=== PATIENT | female | born 1955 | race Hispanic/Latino ===

== ENCOUNTER → 2018-07-26 | Outpatient (CLI) | payer OTHER | END | disposition home or self-care (01) | LOC: RAH 14:21 | PROVIDERS: ATTEND Internal Medicine Nephrology | DX: Z13.6 Encounter for screening for cardiovascular disorders (principal) | CPT/HCPCS: 75571 ==

== ENCOUNTER → 2018-09-07 | Outpatient (CLI) | payer OTHER | END | disposition home or self-care (01) | LOC: SHCH 15:42 | PROVIDERS: ATTEND Internal Medicine Cardiovascular Disease | DX: I11.9 Hypertensive heart disease without heart failure (principal); E66.9 Obesity, unspecified | CPT/HCPCS: 93306 ==

== ENCOUNTER → 2018-09-10 | Outpatient (CLI) | payer OTHER ==
[~2018-09-10] VITALS: Ht 152.4 cm; Wt 112.9 kg
[~2018-09-10] MED LIST: REGADENOSON 0.4 MG/5 ML PF SYG IVP SCH
== END | disposition home or self-care (01) ==
LOC: SHCH 07:37
PROVIDERS: ATTEND Internal Medicine Cardiovascular Disease
DX: R93.1 Abnormal findings on diagnostic imaging of heart and coronary circulation (principal); R07.89 Other chest pain; I10 Essential (primary) hypertension
CPT/HCPCS: 78452; 93017; 96374; A9500 ×2; J2785

== ENCOUNTER → 2018-09-17 | Outpatient (CLI) | payer OTHER ==
[2018-09-17 09:05] LABS: CREATININE 0.7 mg/dL (0.5-1.5)
== END | disposition home or self-care (01) ==
LOC: LAB 08:30
PROVIDERS: ATTEND Internal Medicine Gastroenterology
DX: R93.3 Abnormal findings on diagnostic imaging of other parts of digestive tract (principal)
CPT/HCPCS: 36415; 82565; 84520

== ENCOUNTER → 2018-09-22 | Outpatient (CLI) | payer OTHER ==
[~2018-09-22] MED LIST changes: +GADODIAMIDE 10 MMOL/20 ML VIAL IV ONE; -REGADENOSON 0.4 MG/5 ML PF SYG IVP SCH
== END | disposition home or self-care (01) ==
LOC: RAH 06:59
PROVIDERS: ATTEND Internal Medicine Gastroenterology
DX: K76.0 Fatty (change of) liver, not elsewhere classified (principal)
CPT/HCPCS: 74183; A9579

== ENCOUNTER 2019-08-31 06:59 | Day surgery (SDC) | payer OTHER ==
[2019-08-29 11:15] VITALS: BP 152/77
[2019-08-29 11:16] LABS: CREATININE 0.7 mg/dL (0.5-1.5); POTASSIUM 3.1 mmol/L (3.5-5.1)
[2019-08-29 11:22] LABS: BASOPHILS % (AUTO) 0.5 % (0.0-5.0); EOSINOPHILS % (AUTO) 0.9 % (0.0-8.0); HEMATOCRIT 42.4 % (36-48); LYMPHOCYTES % (AUTO) 35.3 % (21.0-51.0); MEAN CORPUSCULAR HEMOGLOBIN 29.4 pg (27.0-33.0); MEAN CORPUSCULAR HGB CONC 32.8 g/dL (32.0-36.0); MEAN CORPUSCULAR VOLUME 89.6 fL (79-99); NEUTROPHILS % (AUTO) 55.9 % (40.0-77.0); PLATELET COUNT (AUTO) 250 K/uL (130-400); RED BLOOD CELL COUNT(AUTO) 4.73 MIL/uL (4.00-5.50); RED CELL DISTRIBUTION WIDTH 12.9 % (11.0-15.5); WHITE BLOOD COUNT (AUTO) 7.4 K/uL (4.8-10.8)
--- NOTE | 2019-08-30 13:55 | NUR ---
Called Doctor Alyssa and reported lab of potassium of 3.1, new orders to recheck in am. Okay to proceed.
[2019-08-31] VITALS (13 sets, daily range): BP systolic 123–139; BP diastolic 69–75
[~2019-08-31] VITALS: Ht 152.4 cm; Wt 112.9 kg
[~2019-08-31 06:59] MED LIST changes: +AMLO2.5T4 PO; +ASPI-555 PO; +DICY20TA11 PO; -GADODIAMIDE 10 MMOL/20 ML VIAL IV ONE; +HYDR25TA PO; +LATA7.5D OU; +MECL-160 PO; +MILK1CAP3 PO; +OMEG-112 PO; +ROSU20TA31 PO; +vitamin d2
[2019-08-31] MEDS ORDERED: LACTATED RINGERS 1000ML 1,000 ML IV ONE (07:22)
[2019-08-31] MEDS ORDERED: MIDAZOLAM HCL 1 MG/ML 2ML VIAL ONE (08:10)
[2019-08-31] MEDS ORDERED: PROPOFOL 10 MG/ML 20ML VIAL IV ONE (08:10)
[2019-08-31] MEDS ORDERED: FENTANYL CITRATE PF 50 MCG/1 ML 2ML VIAL ONE (08:10)
[2019-08-31] MEDS ORDERED: LIDOCAINE PF 2% 5ML ABBOJECT ONE (08:10)
[2019-08-31] MEDS ORDERED: POTASSIUM CHLORIDE 20MEQ/100ML 100 ML IV SCH (08:30)
[2019-08-31] MEDS ORDERED: CEFAZOLIN SODIUM 1 GM VIAL ONE (09:17)
[2019-08-31] MEDS ORDERED: ONDANSETRON HCL 4 MG/2 ML VIAL ONE (09:27)
[2019-08-31] MEDS ORDERED: KETOROLAC TROMETHAMINE 30MG/ML ONE (10:12)
[2019-08-31] MEDS ORDERED: ACET1TAB12 PO (10:38)
[2019-08-31] MEDS ORDERED: CEPH500B PO (10:38)
[2019-08-31] MEDS ORDERED: MELO-108 PO (10:38)
[2019-08-31] MEDS ORDERED: MEPERIDINE-PF 25 MG/ML SYG ONE (10:45)
[2019-08-31] MEDS ORDERED: POTASSIUM CHLORIDE 20 MEQ ERTAB PO SCH (11:15)
== END 2019-08-31 12:05 | disposition home or self-care (01) ==
LOC: DAH 06:59
PROVIDERS: ATTEND Orthopaedic Surgery
DX: M23.322 Other meniscus derangements, posterior horn of medial meniscus, left knee (principal); M25.452 Effusion, left hip; M24.10 Other articular cartilage disorders, unspecified site; M25.562 Pain in left knee; G89.29 Other chronic pain; M94.262 Chondromalacia, left knee; I10 Essential (primary) hypertension; E78.5 Hyperlipidemia, unspecified; E66.01 Morbid (severe) obesity due to excess calories; M19.90 Unspecified osteoarthritis, unspecified site; Z68.42 Body mass index [BMI] 45.0-49.9, adult; Z85.828 Personal history of other malignant neoplasm of skin; Z98.890 Other specified postprocedural states; Z79.899 Other long term (current) drug therapy; Z79.82 Long term (current) use of aspirin; Z90.49 Acquired absence of other specified parts of digestive tract; Z82.49 Family history of ischemic heart disease and other diseases of the circulatory system; Z82.3 Family history of stroke
CPT/HCPCS: 29881; 36415 ×2; 80048; 84132; 85025; 96365; A4213; A4215; A4221; A4222; A4223 ×2; A4606; A4649 ×2; A4663; A4930; A5120; A6223; J0690; J1885; J2001; J2175; J2250; J2405; J2704; J3010; J3480; J7120

== ENCOUNTER 2020-10-18 18:55 | Emergency (ER) | payer OTHER ==
[~2020-10-18 18:55] MED LIST changes: +ACET1TAB12 PO; -ASPI-555 PO; +ASPI-556 PO; +CEPH500B PO; +MELO-108 PO
[2020-10-18 19:33] LABS: BASOPHILS % (AUTO) 0.4 % (0.0-5.0); EOSINOPHILS % (AUTO) 1.4 % (0.0-8.0); HEMATOCRIT 40.2 % (36-48); LYMPHOCYTES % (AUTO) 31.5 % (21.0-51.0); MEAN CORPUSCULAR HEMOGLOBIN 30.2 pg (27.0-33.0); MEAN CORPUSCULAR HGB CONC 32.6 g/dL (32.0-36.0); MEAN CORPUSCULAR VOLUME 92.6 fL (79-99); NEUTROPHILS % (AUTO) 58.1 % (40.0-77.0); PLATELET COUNT (AUTO) 216 K/uL (130-400); RED BLOOD CELL COUNT(AUTO) 4.34 MIL/uL (4.00-5.50); RED CELL DISTRIBUTION WIDTH 13.9 % (11.0-15.5); WHITE BLOOD COUNT (AUTO) 9.6 K/uL (4.8-10.8)
[2020-10-18 19:50] LABS: INR 0.97 (0.85-1.15); PARTIAL THROMBOPLASTIN TIME 24.8 SEC (26.3-35.5); PROTHROMBIN TIME 10.1 SEC (9.6-11.6)
[2020-10-18 19:59] LABS: CREATININE 0.9 mg/dL (0.5-1.5); POTASSIUM 4.1 mmol/L (3.5-5.1)
[2020-10-18 20:03] LABS: ALBUMIN 3.8 g/dL (3.5-5.0); BILIRUBIN,TOTAL 0.3 mg/dL (0.2-1.0); TOTAL PROTEIN, SERUM 7.4 g/dL (6.0-8.3)
== END 2020-10-18 22:28 | disposition home or self-care (01) ==
LOC: EDH 18:55
DX: R07.89 Other chest pain (principal); Z20.822 Contact with and (suspected) exposure to COVID-19
CPT/HCPCS: 36415; 71045; 80053; 82550; 83880; 84484 ×2; 85025; 85610; 85730; 87426; 93005; 99285; U0003

== ENCOUNTER → 2020-10-26 | Outpatient (CLI) | payer OTHER ==
[~2020-10-26] VITALS: Ht 152.4 cm; Wt 107.0 kg
[~2020-10-26] MED LIST changes: +REGADENOSON 0.4 MG/5 ML PF SYG IVP SCH
== END | disposition home or self-care (01) ==
LOC: SHCH 08:47
PROVIDERS: ATTEND Internal Medicine Cardiovascular Disease
DX: I20.9 Angina pectoris, unspecified (principal)
CPT/HCPCS: 78452; 93017; 96374; A9500 ×2

== ENCOUNTER → 2021-11-04 | Outpatient (CLI) | payer OTHER ==
[~2021-11-04] MED LIST changes: -DICY20TA11 PO; +DICY20TA3 PO; -REGADENOSON 0.4 MG/5 ML PF SYG IVP SCH
[2021-11-04 13:57] LABS: CREATININE 0.8 mg/dL (0.5-1.5)
== END | disposition home or self-care (01) ==
LOC: LAB 11:46
PROVIDERS: ATTEND Internal Medicine
DX: R92.8 Other abnormal and inconclusive findings on diagnostic imaging of breast (principal)
CPT/HCPCS: 36415; 82565; 84520

== ENCOUNTER → 2021-11-07 | Outpatient (CLI) | payer OTHER ==
[~2021-11-07] MED LIST changes: +GADOTERATE MEGLUMINE 10 MMOL/20 ML VIAL IV ONE
== END | disposition home or self-care (01) ==
LOC: RAH 07:43
PROVIDERS: ATTEND Internal Medicine
DX: N60.01 Solitary cyst of right breast (principal); N60.02 Solitary cyst of left breast
CPT/HCPCS: 77049; A9575

== ENCOUNTER → 2022-08-01 | Outpatient (CLI) | payer OTHER ==
[~2022-08-01] MED LIST changes: -GADOTERATE MEGLUMINE 10 MMOL/20 ML VIAL IV ONE
== END | disposition home or self-care (01) ==
LOC: RAH 08:04
PROVIDERS: ATTEND Internal Medicine Gastroenterology
DX: K76.0 Fatty (change of) liver, not elsewhere classified (principal); K76.89 Other specified diseases of liver; N28.1 Cyst of kidney, acquired; R93.2 Abnormal findings on diagnostic imaging of liver and biliary tract; Z90.49 Acquired absence of other specified parts of digestive tract
CPT/HCPCS: 76700

== ENCOUNTER 2023-03-30 05:02 | Observation (INO) | payer OTHER, MEDICARE ==
[2023-03-27 12:58] LABS: BASOPHILS # (AUTO) 0.02 K/uL (0.00-0.20); BASOPHILS % (AUTO) 0.3 % (0.0-5.0); EOSINOPHILS # (AUTO) 0.05 K/uL (0.00-0.70); EOSINOPHILS % (AUTO) 0.8 % (0.0-8.0); HEMATOCRIT 39.7 % (36-48); IMMATURE GRANULOCYTE ABSOLUTE 0.02 K/uL (0-1); LYMPHOCYTES % (AUTO) 30.8 % (21.0-51.0); MEAN CORPUSCULAR HEMOGLOBIN 29.6 pg (27.0-33.0); MEAN CORPUSCULAR HGB CONC 31.7 g/dL (32.0-36.0); MEAN CORPUSCULAR VOLUME 93.2 fL (79-99); MONOCYTES # (AUTO) 0.4 K/uL (0.1-1.0); MONOCYTES % (AUTO) 5.8 % (3.0-13.0); NEUTROPHILS # (AUTO) 4.1 K/uL (1.8-7.7); PLATELET COUNT (AUTO) 259 K/uL (130-400); RED BLOOD CELL COUNT(AUTO) 4.26 MIL/uL (4.00-5.50); RED CELL DISTRIBUTION WIDTH 12.8 % (11.0-15.5); WHITE BLOOD COUNT (AUTO) 6.6 K/uL (4.8-10.8)
[2023-03-27 13:47] LABS: CREATININE 0.6 mg/dL (0.5-1.5); POTASSIUM 3.8 mmol/L (3.5-5.1)
[2023-03-27 14:34] VITALS: BP 177/81; PULSE 66; RESP 18
[~2023-03-30] VITALS: Ht 152.4 cm; Wt 88.2 kg
[2023-03-30] VITALS (26 sets, daily range): BP systolic 108–150; BP diastolic 41–75; PULSE 52–73; RESP 14–24; O2SAT 98–99
[~2023-03-30 05:02] MED LIST changes: -ACET1TAB12 PO; -AMLO2.5T4 PO; +CELE-146 PO; -CEPH500B PO; -DICY20TA3 PO; +ERGO500093 PO; +FURO20TA4 PO; -HYDR25TA PO; +LINA145C PO; +LOSA50TA64 PO; -MECL-160 PO; +MECL-302 PO; -OMEG-112 PO; +OMEP40CA21 PO; +PITA2TAB2 PO; -ROSU20TA31 PO; +TIMO1DRO9 OP; +TRAM50TA4 PO; +krill oil PO; -vitamin d2
[2023-03-30] MEDS ORDERED: CEFAZOLIN SODIUM 2 GM VIAL ONE (05:27)
[2023-03-30] MEDS ORDERED: LACTATED RINGERS 1000ML 1,000 ML IV ONE (05:27)
[2023-03-30] MEDS ORDERED: FENTANYL CITRATE PF 50 MCG/1 ML 5ML AMP IV ONE ×3 (05:48→07:27)
[2023-03-30 05:57] LABS: INR < 0.93 (0.85-1.15); PROTHROMBIN TIME 10.4 SEC (9.6-11.6)
[2023-03-30] MEDS ORDERED: CEFAZOLIN SODIUM 1 GM VIAL ONE ×2 (07:04→09:22)
[2023-03-30] MEDS ORDERED: TRANEXAMIC ACID 1000MG/10ML ONE ×2 (07:04→09:21)
[2023-03-30] MEDS ORDERED: GENTAMICIN SULFATE 80 MG/2 ML VIAL ONE ×2 (07:05→09:22)
[2023-03-30] MEDS ORDERED: DEXAMETHASONE SOD PHOSPHATE 10MG/ML 1ML VIAL ONE (07:23)
[2023-03-30] MEDS ORDERED: NEOSTIGMINE 5MG/5ML SYR IV ONE (07:23)
[2023-03-30] MEDS ORDERED: GLYCOPYRROLATE 1 MG/5 ML SYRINGE ONE (07:23)
[2023-03-30] MEDS ORDERED: SUCCINYLCHOLINE CHLORIDE 20 MG/ML 10 ML VIAL ONE (07:23)
[2023-03-30] MEDS ORDERED: LIDOCAINE PF 100MG/5ML (2%) SYRINGE 5ML ONE (07:23)
[2023-03-30] MEDS ORDERED: ROCURONIUM 10MG/1ML SYR 10 MG/ML ML ONE (07:24)
[2023-03-30] MEDS ORDERED: ONDANSETRON 4MG INJ ONE (07:24)
[2023-03-30] MEDS ORDERED: PROPOFOL 1000 MG/100 ML 100 ML IV ONE (07:26)
[2023-03-30] MEDS ORDERED: LIDOCAINE HCL 400MG/20ML VIAL ONE (07:26)
[2023-03-30] MEDS ORDERED: MIDAZOLAM HCL 1 MG/ML 5ML VIAL ONE (07:27)
[2023-03-30] MEDS ORDERED: DEXMEDETOMIDINE HCL 200 MCG/2 ML VIAL IV ONE (07:27)
[2023-03-30] MEDS ORDERED: KETAMINE 50MG/ML SYRINGE 50 MG/ML DISP.SYRIN ONE (07:28)
[2023-03-30] MEDS ORDERED: PHENYLEPHRINE HCL 10 MG/ML 1ML VIAL IV ONE (07:43)
[2023-03-30] MEDS ORDERED: TRANEXAMIC ACID 1000MG/10ML IV ONE (08:13)
[2023-03-30] MEDS ORDERED: EPHEDRINE SULFATE 50 MG/ML AMPULE ONE (08:17)
[2023-03-30] MEDS ORDERED: 0.9%NACL 100ML 48.45 ML, ROPIVACAINE 0.5% 5MG/ML 30ML 246.25 MG, KETOROLAC TROMETHAMINE... IV PRN ×5 (09:00)
[2023-03-30] MEDS ORDERED: CEFAZOLIN SODIUM 2 GM VIAL IJ ONE (09:05)
[2023-03-30] MEDS ORDERED: MEPERIDINE-PF 25 MG/ML SYG ONE (09:15)
[2023-03-30] MEDS ORDERED: ZINC OXIDE OINT 60GM TUBE TP PRN (13:00)
[2023-03-30] MEDS ORDERED: ACETAMINOPHEN 325 MG TAB PO PRN ×2 (13:00)
[2023-03-30] MEDS ORDERED: BENZOCAINE/MENTH/CETYLPYRD CL 1 EACH LOZENGE MM PRN (13:00)
[2023-03-30] MEDS ORDERED: DIPHENHYDRAMINE HCL 25 MG CAPSULE PO PRN (13:00)
[2023-03-30] MEDS ORDERED: CEFAZOLIN SODIUM 2 GM VIAL IVPB SCH (13:00)
[2023-03-30] MEDS ORDERED: DIPHENOXYLATE HCL/ATROPINE 2.5/0.025 MG TAB PO PRN (13:00)
[2023-03-30] MEDS ORDERED: LACTULOSE 20 GM/30 ML UDCUP PO PRN (13:00)
[2023-03-30] MEDS ORDERED: ONDANSETRON 4MG INJ IVP PRN (13:00)
[2023-03-30] MEDS ORDERED: DiphenhydrAMINE HCL 50 MG/ML VIAL IM PRN (13:00)
[2023-03-30] MEDS ORDERED: DIPHENHYDRAMINE HCL 25 MG CAPSULE PO SCH (13:00)
[2023-03-30] MEDS ORDERED: MAG/ALUM/SIMETH 30 ML UDCUP PO PRN (13:00)
[2023-03-30] MEDS ORDERED: ACETAMINOPHEN 325 MG TAB PO SCH (13:00)
[2023-03-30] MEDS ORDERED: HYDROMORPHONE PCA 10 MG/50 ML 50 ML IV PRN (13:00)
[2023-03-30] MEDS ORDERED: COMPOUND IV REFRIGERATED 1 EACH IVSOLN MISC PRN (13:30)
[2023-03-30] MEDS ORDERED: MECLIZINE HCL 25 MG TABLET PO PRN (15:00)
[2023-03-30] MEDS: 0.9%NACL 1000ML 1,000 ML IV SCH ×2 (15:46→22:53)
[2023-03-30] MEDS: CEFAZOLIN SODIUM 3 GM in DEXTROSE 5%-WATER 100 ML IVPB SCH (16:22)
[2023-03-30] MEDS ORDERED: Linaclotide (Linzess) 145 MCG PO SCH (21:00)
[2023-03-31 00:09] VITALS: BP 115/56; PULSE 74; RESP 20
[2023-03-31] MEDS: CEFAZOLIN SODIUM 3 GM in DEXTROSE 5%-WATER 100 ML IVPB SCH (00:11)
[2023-03-31 03:28] LABS: MEAN CORPUSCULAR HEMOGLOBIN 29.9 pg (27.0-33.0); MEAN CORPUSCULAR HGB CONC 31.6 g/dL (32.0-36.0); MEAN CORPUSCULAR VOLUME 94.7 fL (79-99); RED BLOOD CELL COUNT(AUTO) 3.38 MIL/uL (4.00-5.50); WHITE BLOOD COUNT (AUTO) 8.5 K/uL (4.8-10.8)
[2023-03-31 03:34] LABS: CREATININE 0.7 mg/dL (0.5-1.5); POTASSIUM 3.8 mmol/L (3.5-5.1)
[2023-03-31 03:47] VITALS: BP 115/56; PULSE 74; RESP 20
[2023-03-31] MEDS: TRAMADOL HCL 50 MG TABLET PO PRN ×2 (04:04→10:18)
[2023-03-31 08:00] VITALS: BP 130/58; PULSE 75; RESP 16
[2023-03-31] MEDS: 0.9%NACL 1000ML 1,000 ML IV SCH (08:44)
[2023-03-31 08:46] VITALS: O2SAT 94
[2023-03-31] MEDS ORDERED: LOSARTAN 50 MG TABLET PO SCH (09:00)
[2023-03-31] MEDS ORDERED: RIVAROXABAN 10 MG TABLET PO SCH (09:00)
[2023-03-31] MEDS ORDERED: NON-FORMULARY MEDICATION 1 EACH (Omeprazole 40 MG) PO SCH (09:00)
[2023-03-31] MEDS ORDERED: FUROSEMIDE 20 MG TABLET PO SCH (09:00)
[2023-03-31 12:00] VITALS: BP 131/64; PULSE 61; RESP 16
== END 2023-03-31 14:45 | disposition home health service (06) ==
LOC: DAH 05:02 → 4BH 05:03
PROVIDERS: ADMIT Orthopaedic Surgery; ATTEND Orthopaedic Surgery
DX: M17.12 Unilateral primary osteoarthritis, left knee (principal); E78.5 Hyperlipidemia, unspecified; I10 Essential (primary) hypertension; E66.9 Obesity, unspecified; K21.9 Gastro-esophageal reflux disease without esophagitis; I25.10 Atherosclerotic heart disease of native coronary artery without angina pectoris; Z68.38 Body mass index [BMI] 38.0-38.9, adult; Z90.710 Acquired absence of both cervix and uterus; Z96.653 Presence of artificial knee joint, bilateral; Z91.040 Latex allergy status; Z90.89 Acquired absence of other organs
CPT/HCPCS: 80048 ×2; 85025; 36415 ×3; 71045; 93005; 87641; 27447; 96365; 96366 ×3; 96368; 85610; 85730; 97161; 97116 ×3; 85027; 97530 ×6; A6260; G0378 ×23; A4663; J7120 ×2; A4215 ×2; A4649 ×4; J3010 ×3; J0690 ×5; J3490 ×8; J1170; J1100; J2710; J0330; J0171; J2001; J2250; J1580 ×2; J2704; J7060; J2405; J1885; J2175; J2795; J2371; J0735; A6223; C1763 ×2; C1776; A5120; A4223; A4222; A4221; A6450; J7030 ×2; A4600; A4510 ×2; 96367

== ENCOUNTER 2024-06-28 06:54 | Day surgery (SDC) | payer MEDICARE ==
[2024-06-28] VITALS (10 sets, daily range): BP systolic 95–128; BP diastolic 46–70; PULSE 50–59; RESP 14–18; TEMP 97.5–97.8
[~2024-06-28] VITALS: Ht 152.4 cm; Wt 84.8 kg
[~2024-06-28 06:54] MED LIST changes: -ASPI-556 PO; -ERGO500093 PO; -FURO20TA4 PO; -LOSA50TA64 PO; -MELO-108 PO; +MILK175C5 PO; -MILK1CAP3 PO; -TRAM50TA4 PO; +UBID100C10 PO
[2024-06-28] MEDS: 0.9%NACL 1000ML 1,000 ML IV ONE (07:41)
[2024-06-28] MEDS ORDERED: proPOFol 10 MG/ML 20ML VIAL IV ONE (09:46)
[2024-06-28] MEDS ORDERED: LIDOCAINE HCL 1% 20 ML VIAL ONE (09:46)
--- NOTE | 2024-06-28 11:05 | NUR ---
FULL AND COMPLETE DISCHARGE INSTRUCTIONS GIVEN BOTH VERBALLY AND IN WRITING TO PATIENT AND FAMILY. ALL QUESTIONS ANSWERED. PIV REMOVED WITH CATHETER TIP INTACT. DENIES CURRENT PAIN OR NAUSEA. VOICED UNDERSTANDING TO EGD INSTRUCTIONS AND FOLLOW UP. W/C TO POV WITH FAMILY TO HOME.
== END 2024-06-28 11:05 | disposition home or self-care (01) ==
LOC: DAH 06:54 → ENDO 06:54
PROVIDERS: ATTEND Internal Medicine Gastroenterology
DX: K31.A11 Gastric intestinal metaplasia without dysplasia, involving the antrum (principal); K59.04 Chronic idiopathic constipation; K29.70 Gastritis, unspecified, without bleeding; K21.00 Gastro-esophageal reflux disease with esophagitis, without bleeding; K44.9 Diaphragmatic hernia without obstruction or gangrene; R12 Heartburn; R93.2 Abnormal findings on diagnostic imaging of liver and biliary tract; K76.0 Fatty (change of) liver, not elsewhere classified; D12.6 Benign neoplasm of colon, unspecified; E78.5 Hyperlipidemia, unspecified; I10 Essential (primary) hypertension; K57.30 Diverticulosis of large intestine without perforation or abscess without bleeding; E66.9 Obesity, unspecified; Z80.0 Family history of malignant neoplasm of digestive organs; Z79.82 Long term (current) use of aspirin; Z79.899 Other long term (current) drug therapy; Z87.898 Personal history of other specified conditions; Z90.710 Acquired absence of both cervix and uterus; Z96.659 Presence of unspecified artificial knee joint; Z90.49 Acquired absence of other specified parts of digestive tract; Z68.38 Body mass index [BMI] 38.0-38.9, adult
CPT/HCPCS: 43239; J7030 ×2; J2704; A4620; A4215; A4223; A7002; A4222; A4221; A4663; A4606; J3490

== ENCOUNTER 2024-10-30 15:01 | Emergency (ER) | payer MEDICARE ==
[~2024-10-30] VITALS: Ht 152.4 cm; Wt 87.1 kg
--- NOTE | 2024-10-30 16:50 | HMCIMG ---
US SOFT TISSUE LOWER EXTREMITY REASON: r/o abscess right lower calf. COMPARISON: None TECHNIQUE: Right calf ultrasound study was performed. FINDINGS: Over the region of interest in the right calf, there appears to be subcutaneous abscess and bacteremia measuring 1.2 x 0.4 x 1.4 cm. IMPRESSION: Over the region of interest in the right calf, there appears to be subcutaneous abscess and bacteremia measuring 1.2 x 0.4 x 1.4 cm.
--- NOTE | 2024-10-30 16:53 | ERN ---
ED Note History of Present Illness Stated Complaint: RT LEG NON HEALING WOUND Chief Complaint: Wound Check Time Seen by MD: 15:32 Time Seen by Midlevel: 15:32 Dictation: 69-year-old female nondiabetic coming in with complaints of a horse fly bite to the right calf five days ago. Patient is currently taking doxycycline scribe by her PCP, noticed some bloody drainage. Decided to come and be re-evaluated. Allergies: Coded Allergies: No Known Drug Allergies (Verified Allergy, Unknown, 08/29/19) adhesive tape (Unverified Allergy, Unknown, 08/29/19) latex (Unverified Allergy, Unknown, 03/27/23) Home Meds Reported Medications Ubidecarenone (Coq-10) 100 Mg Capsule, 100 MG PO DAILY, CAP 06/27/24 Milk Thistle Seed Extract (Milk Thistle) 175 Mg Capsule, 175 MG PO DAILY, CAP 06/27/24 Timolol Maleate/Pf (Timolol Maleate 0.5% Eye Drop) 0.5 % Droperette, 1 EACH OP AM, DROP 03/27/23 [krill oil] No Conflict Check, 2 TAB PO AM 03/27/23 Omeprazole (Omeprazole) 40 Mg Capsule.dr, 40 MG PO AM, CAP 03/27/23 Linaclotide (Linzess) 145 Mcg Capsule, 145 MCG PO HS, CAP 03/27/23 Celecoxib (Celecoxib) 100 Mg Capsule, 200 MG PO HS, CAP 03/27/23 Pitavastatin Calcium (Livalo) 2 Mg Tablet, 2 MG PO HS, TAB 03/27/23 Latanoprost/Pf (Latanoprost 0.005% Eye Drop) 7.5 Ml Drops, 1 DROP OU HS, DROP 08/29/19 Meclizine HCl (Meclizine HCl) 25 Mg Tablet, 25 MG PO BID PRN for DIZZINESS, TAB 08/29/19 Past Medical History Past Medical History: Anxiety, High Cholesterol Surgical History: Other Surgical History Other: BILATERAL KNEE REPLACEMENT Review of System Dictation Constitutional: Negative for fever,chills, and weight loss Eyes: Negative for injury, pain,redness, and discharge ENT: Negative for injury,pain or swelling Cardiovascular: Negative for chest pain, palpitations, and edema Respiratory: Negative for shortness of breath, cough, and wheezing, Abdomen/GI: Negative for abdominal pain, nausea, vomiting, diarrhea, and constipation Back: Negative for injury and pain : Negative for injury, bleeding and discharge MS/Extremity: Negative for injury and deformity Skin: Negative for rash, and discoloration, horse bite to the right calf Neuro: Negative for headache, weakness, numbness, tingling, and seizure Psych: Negative for suicide ideation, homicidal ideation, and hallucinations Review of Systems: was completed Initial Vital Sign VS Vital Signs Date Time Temp Pulse Resp B/P (MAP) Pulse Ox O2 Delivery O2 Flow Rate FiO2 10/30/24 15:02 98.4 71 20 143/79 98 Room Air 0 10/30/24 15:50 21 Physical Exam Dictation General: awake, alert, NAD Head/Face: Normocephalic, atraumatic Eyes: PERRL, EOMI, vision at baseline ENT: oral cavity clear, TMs clear, no signs of infection Neck: Trachea midline, supple, no nuchal rigidity Cardiovascular: RRR, normal S1/S2, No MRGs, no JVD Respiratory: CTAB, no respiratory distress, No rales or wheezes Abdomen: Soft, non-tender, non-distended, normal bowel sounds, no guarding or rebound. Skin: Warm, dry, normal turgor, no rash, 2 cm wound to the right can with scant amount of purulent drainage MS/Extremity: Pulses equal, no cyanosis, neurovascular intact, FROM Neuro: COAx4, GCS 15, strength 5/5, CN 2-12 intact, normal cerebellar exam, normal gait, Psych: Normal behavior, mood, and affect normal ED Course ED Course Orders Procedure Category Date Status Time Us Soft Tissue Lower US 10/30/24 Taken Extremity 15:39 Vital Signs Date Time Temp Pulse Resp B/P (MAP) Pulse Ox O2 Delivery O2 Flow Rate FiO2 10/30/24 15:50 98.1 67 18 139/64 Room Air* 0 21 10/30/24 15:02 98.4 71 20 143/79 98 Room Air 0 Medical Decision Making MDM MDM: 69-year-old female nondiabetic coming in with complaints of a horse fly bite to the right calf five days ago. Patient is currently taking doxycycline scribe by her PCP, noticed some bloody drainage. Decided to come and be re- evaluated. Ultrasound ordered to rule out any abscess, ultrasound shows complex fluid surrounding edema and possible abscess measuring 2 x 10 0.4 x 1.4 cm. See I and D for procedure note. Discussed with the patient on wound care and to continue taking her doxycycline. Educated to follow up PCP and return to the hospital symptoms worsen. Patient verbalized understanding, answered all questions. ER MD bedside while procedure being done in assessing patient. Differential diagnosis: Cellulitis, abscess, Rationale: Tests considered and ordered secondary to shared decision making include: Previous outside records reviewed: Old ER visits. Risk of complication and/or morbidity or mortality of patient management: None Medications-Per medication reconciliation Need for hospitalization: Patient does not meet criteria for hospitalization. Need for emergency major/minor surgery: No There are no social concerns with this patient. Prescription drug management Prescriptions will include symptomatic care Patient's prior external medical records from other ER visits were reviewed by me as indicated. Prior testing and results from previous visits were reviewed. Prior tests were taken into account with medical decision making and resource utilization, independent historian/historians were used to obtain complete medical history. I independently interpreted the test that were performed, results were reviewed by me and considered findings on radiology if ordered. Medical management and examination interpretation discussions were had by me with other qualified healthcare professionals as indicated for the patient's care. Procedure Blade Size: 11 I & D Procedure: no betadine prepno sterile drapes applied DX & DISP Disposition: Discharge Departure Impression: Primary Impression: Abscess Condition: Stable Additional Instructions: Keep area clean and dry, soaked as much as possible to help with the drainage. Continue taking your doxycycline. Return to the hospital for worsening symptoms. Referrals: RIKI WYATT MD (PCP) Time of Disposition: 16:52 I have reviewed the case, and I agree with, Diagnosis and Plan I PERFORMED A SUBSTANTIVE PORTION OF THE VISIT. I HAVE REVIEWED AND PERSONALLY MADE AND APPROVE THE MANAGEMENT PLAN THAT IS DOCUMENTED IN THE NOTE BY MYSELF OR THE AP P. I ACKNOWLEDGE FULL RESPONSIBILITY FOR THE PATIENT'S MANAGEMENT PLAN. BETHANIE HONEYCUTT NP October 30, 2024 16:53
[2024-10-30 16:54] VITALS: BP 145/81; PULSE 64; RESP 18; TEMP 98.1; O2SAT 98
== END 2024-10-30 16:56 | disposition home or self-care (01) ==
LOC: EDH 15:01
DX: L02.415 Cutaneous abscess of right lower limb (principal); E78.00 Pure hypercholesterolemia, unspecified; Z96.653 Presence of artificial knee joint, bilateral; Z79.899 Other long term (current) drug therapy
CPT/HCPCS: 10060; 76882; 99284

== ENCOUNTER 2024-10-31 12:29 | Emergency (ER) | payer MEDICARE ==
[~2024-10-31] VITALS: Ht 152.4 cm; Wt 86.8 kg
[2024-10-31 12:40] VITALS: BP 131/77; PULSE 67; RESP 16; TEMP 98.4
--- NOTE | 2024-10-31 12:53 | NUR ---
Received patient, no orders. Called Dr. De as per note from Dr gideon Rm. Dr. De stated he wont see the patient; to notify ER physician to evaluate patient to treat or admit patient. I notify Dr. Gonzales about situation; he stated to call Dr. Peters and verify orders. I verbalized understanding.
--- NOTE | 2024-10-31 13:01 | NUR ---
Called Dr. Peters office for further instructions. No answer, pending orders.
--- NOTE | 2024-10-31 13:16 | NUR ---
Called Dr. Peters office, spoke to medical assisstant Mrs. Fernando, explained the situation. She stated that she spoke with Dr. Peters and Doctor stated she wont be admitting patien and to Let ER physician make that decisio. I notify Dr. Gonzales, he verbalized understanding.
--- NOTE | 2024-10-31 13:17 | NUR ---
Notify patient about current changes; she verbalized understanding.
--- NOTE | 2024-10-31 14:04 | ERN ---
General Chief Complaint: Wound Check Stated Complaint: DIRECT ADMIT Time Seen by MD: 13:33 Source: patient History of Present Illness Initial Comments PATIENT WAS IS A 69-YEAR-OLD FEMALE COMING IN WITH A LOWER EXTREMITY WOUND. PATIENT WERE PATIENT SHE HAS BEEN SEEN BEFORE FOR THE SAME REASON SAW HER PCP HER PCP SENT HER IN TO BE DIRECTLY ADMITTED. PER ADMITTING PHYSICIAN PATIENT IS TO BE EVALUATED IN ER AND HE SHOULD BE NOTIFIED IF THERE IS A REASON TO ADMIT HER. Allergies: Coded Allergies: No Known Drug Allergies (Verified Allergy, Unknown, 08/29/19) adhesive tape (Unverified Allergy, Unknown, 08/29/19) latex (Unverified Allergy, Unknown, 03/27/23) Home Meds Reported Medications Ubidecarenone (Coq-10) 100 Mg Capsule, 100 MG PO DAILY, CAP 06/27/24 Milk Thistle Seed Extract (Milk Thistle) 175 Mg Capsule, 175 MG PO DAILY, CAP 06/27/24 Timolol Maleate/Pf (Timolol Maleate 0.5% Eye Drop) 0.5 % Droperette, 1 EACH OP AM, DROP 03/27/23 [krill oil] No Conflict Check, 2 TAB PO AM 03/27/23 Omeprazole (Omeprazole) 40 Mg Capsule.dr, 40 MG PO AM, CAP 03/27/23 Linaclotide (Linzess) 145 Mcg Capsule, 145 MCG PO HS, CAP 03/27/23 Celecoxib (Celecoxib) 100 Mg Capsule, 200 MG PO HS, CAP 03/27/23 Pitavastatin Calcium (Livalo) 2 Mg Tablet, 2 MG PO HS, TAB 03/27/23 Latanoprost/Pf (Latanoprost 0.005% Eye Drop) 7.5 Ml Drops, 1 DROP OU HS, DROP 08/29/19 Meclizine HCl (Meclizine HCl) 25 Mg Tablet, 25 MG PO BID PRN for DIZZINESS, TAB 08/29/19 Past Medical History Past Medical History: Anxiety, High Cholesterol Medical History Other: GAUCOMA Past Surgical History: Other Surgical History Other: BILATERAL KNEE REPLACEMENT ROS Dictation CONSTITUTIONAL: NO CHILLS, NO FEVER, NO WEAKNESS, NO DIAPHORESIS, NO MALAISE. HEAD/FACE: NO SIGNS OF TRAUMA. EENT: NO EYE PAIN, NO BLURRED VISION, NO TEARING, NO DOUBLE VISION, NO EAR PAIN, NO EAR DISCHARGE, NO NOSE PAIN, NO NASAL CONGESTION, NO THROAT PAIN, NO THROAT SWELLING, NO MOUTH PAIN. RESPIRATORY: NO COUGH, NO ORTHOPNEA, NO SOB, NO STRIDOR, NO WHEEZING. CARDIOVASCULAR: NO CHEST PAIN, NO EDEMA, NO PALPITATIONS, NO SYNCOPE. GASTROINTESTINAL/ABDOMINAL: NO ABDOMINAL PAIN, NO CONSTIPATION, NO DIARRHEA, NO NAUSEA, NO VOMITING. GENITOURINARY: NO ABNORMAL DISCHARGE, NO DYSURIA, NO FREQUENT URINATION, NO HEMATURIA. NO COMPLAINTS OF PAIN IN THE GENITALS. MUSCULOSKELETAL: NO BACK PAIN, NO GOUT, NO JOINT PAIN, NO JOINT SWELLING, NO MUSCLE PAIN, NO MUSCLE STIFFNESS, NO NECK PAIN. INTEGUMENTARY: NO CHANGE IN COLOR, NO CHANGE IN HAIR/NAILS, NO DRYNESS, NO LESION, NO LUMPS, NO RASH. NEUROLOGICAL/PSYCH: NO ANXIETY, NOT DEPRESSED, NO EMOTIONAL PROBLEM, NO HEADACHE, NO NUMBNESS, NO PRE-EXISTING DEFICIT, NO HISTORY OF SEIZURES, NO TREMORS, NO WEAKNESS. HEMATOLOGIC/LYMPHATIC: NOT ANEMIC, NO HISTORY OF BLOOD CLOTS, NO APPARENT BLEEDING, NO BRUISING, GLANDS NOT SWOLLEN. ALL SYSTEMS NEGATIVE, EXCEPT NOTED. Physical Exam Physical Exam Dictation VITAL SIGNS: REVIEWED. GENERAL APPEARANCE: ALERT, ORIENTED X3, NO ACUTE DISTRESS, OBESE. HEAD AND FACE: NON-TRAUMATIC. EYES: PERRL, PINK CONJUNCTIVAS, EYELID NO TRAUMA, ANTERIOR CHAMBER CLEAR. EARS: PINNAS INTACT AND NO SIGNS OF TRAUMA OR ERYTHEMA. EAR CANALS CLEAR AND NO DISCHARGE. TMS NO ERYTHEMA. NOSE: NO DISCHARGE, NO BLEEDING. OROPHARYNX: MOUTH NORMAL, TEETH NO CARIES, TONGUE PINK. PHARYNX CLEAR, NO ERYTHEMA. TONSILS NO EXUDATES, NO ABSCESSES NOTED. MUCOUS MEMBRANE MOIST. NECK: SUPPLE, NON-TENDER, NO THYROMEGALY, NO MASSES, NO JVD, NO BRUITS. BREAST: DEFERRED. CHEST: NO TENDERNESS, NO CREPITUS, NO PARADOXICAL MOVEMENT, NO RETRACTIONS. LUNGS: CLEAR, WELL-VENTILATED, SYMMETRIC, NO RALES, NO WHEEZING, NO RHONCHI, NO STRIDOR, GOOD BREATH SOUNDS BILATERALLY. HEART: REGULAR RATE, REGULAR RHYTHM, NO MURMUR, NO GALLOPS. VASCULAR: NO PERIPHERAL EDEMA. ABDOMEN: SOFT, POSITIVE BOWEL SOUNDS, NONDISTENDED, NO GUARDING, NONTENDER, NO REBOUND, NO MASSES NO HEPATOMEGALY, NO SPLENOMEGALY, NO WREN'S SIGN, NO HERNIAS. RECTAL: DEFERRED. GENITAL: DEFERRED. NEUROLOGICAL: NORMAL SPEECH, GROSS MOTOR FUNCTION INTACT, GROSS SENSORY FUNCTION INTACT. MUSCULOSKELETAL: NECK NONTENDER, FULL RANGE OF MOTION, BACK NONTENDER, FULL RANGE OF MOTION. EXTREMITIES: NONTENDER, FULL RANGE OF MOTION. SKIN: COLOR PINK, DRY, NO TURGOR, NO RASH, NO LACERATIONS, NO ABRASIONS, NO CONTUSIONS. LYMPHATICS: DEFERRED. Results Laboratory and Microbiology Lab and Micro Result Laboratory Tests Test 10/31/24 14:24 White Blood Count 6.1 K/uL (4.8-10.8) Red Blood Count 4.78 MIL/uL (4.00-5.50) Hemoglobin 14.1 g/dL (12.0-16.0) Hematocrit 44.2 % (36-48) Mean Corpuscular Volume 92.5 fL (79-99) Mean Corpuscular Hemoglobin 29.5 pg (27.0-33.0) Mean Corpuscular Hemoglobin Concent 31.9 g/dL (32.0-36.0) L Red Cell Distribution Width 12.8 % (11.0-15.5) Platelet Count 218 K/uL (130-400) Mean Platelet Volume 10.9 fL (7.5-10.5) H Immature Granulocyte % (Auto) 0.7 % (0-1) Neutrophils (%) (Auto) 58.7 % (40.0-77.0) Lymphocytes (%) (Auto) 27.5 % (21.0-51.0) Monocytes (%) (Auto) 10.0 % (3.0-13.0) Eosinophils (%) (Auto) 2.6 % (0.0-8.0) Basophils (%) (Auto) 0.5 % (0.0-5.0) Neutrophils # (Auto) 3.6 K/uL (1.8-7.7) Lymphocytes # (Auto) 1.7 K/uL (1.0-4.8) Monocytes # (Auto) 0.6 K/uL (0.1-1.0) Eosinophils # (Auto) 0.16 K/uL (0.00-0.70) Basophils # (Auto) 0.03 K/uL (0.00-0.20) Absolute Immature Granulocyte (auto 0.04 K/uL (0-1) Nucleated Red Blood Cells 0.0 % (0.0-0.19) Sodium Level 143 mmol/L (136-145) Potassium Level 4.1 mmol/L (3.5-5.1) Chloride Level 106 mmol/L (101-111) Carbon Dioxide Level 27 mmol/L (21-32) Blood Urea Nitrogen 18 mg/dL (7-18) Creatinine 0.8 mg/dL (0.5-1.0) Glomerular Filtration Rate Calc 81 mL/min (>90) Random Glucose 90 mg/dL (70-105) Total Calcium 8.6 mg/dL (8.5-10.1) Labs Reviewed?: Yes EKG/XRAY/US/CT/MRI Ultrasound Comment RIGHT LOWER EXT US- SUBCUTANEOUS FAT STRANDING, TRACE FREE FLUID OF PREVIOUS ABSCESS MDM MDM: DIFFERENTIAL DIAGNOSIS: LOWER LEFT EXTREMITY CELLULITIS, PREVIOUS ULTRASOUND RATIONALE: TESTS CONSIDERED AND ORDERED SECONDARY TO SHARED DECISION MAKING INCLUDE: PREVIOUS OUTSIDE RECORDS REVIEWED: OLD ER VISITS. RISK OF COMPLICATION AND/OR MORBIDITY OR MORTALITY OF PATIENT MANAGEMENT: NONE PATIENT IS A 69-YEAR-OLD FEMALE COMING IN TO BE EVALUATED FOR RIGHT LOWER EXTREMITY PAIN. ULTRASOUND DISCLOSE IMPROVING ABSCESS FLUID WHICH WAS PREVIOUSLY SEEN. PATIENT WILL BE DISCHARGED IN STABLE CONDITION WITH A DIAGNO SIS OF RIGHT LOWER EXTREMITY CELLULITIS STATUS POST I AND D. ED Course Orders Procedure Category Date Status Time Cbc With Differential LAB 10/31/24 Complete 13:47 Basic Metabolic Panel LAB 10/31/24 Complete 13:47 Us Soft Tissue Lower US 10/31/24 Taken Extremity 13:47 Ceftriaxone 1g Vial PHA 10/31/24 Verified (Rocephine 1g Inj) 15:00 Ketorolac PHA 10/31/24 Verified Tromethamine 30mg/Ml 15:00 Vital Signs Date Time Temp Pulse Resp B/P (MAP) Pulse Ox O2 Delivery O2 Flow Rate FiO2 10/31/24 12:40 98.4 67 16 131/77 98 Room Air 0 DX & DISP Disposition: Discharge Departure Impression: Primary Impression: Lower extremity cellulitis Condition: Stable Additional Instructions: FOLLOW-UP WITH PRIMARY CARE PROVIDER IN 1 TO 2 DAYS. TAKE MEDICATIONS DIRECTED HERE IN THE EMERGENCY ROOM. OKAY TO CONTINUE HOME MEDICATIONS UNLESS OTHERWISE DISCUSSED DURING YOUR VISIT IN THE EMERGENCY ROOM TODAY. RETURN TO YOUR NEAREST EMERGENCY ROOM IF SYMPTOMS WORSEN OR IF THERE IS NO IMPROVEMENT. CALL 911 IF YOU NEED IMMEDIATE ASSISTANCE. TAKE TYLENOL [id number] NEEDED AND IF NO CONTRAINDICATIONS ARE PRESENT. INCREASE ORAL HYDRATION. A WOUND CULTURE OR URINE CULTURE WAS ORDERED HERE IN THE EMERGENCY ROOM DEPARTMENT PLEASE FOLLOW-UP WITH PRIMARY CARE PROVIDER AND ADVISE THEM TO GET REPEAT PORTS FROM OUR FACILITY. IF YOU HAD ANY BELIA WRAP/SPLINTS THAT WERE APPLIED HERE, PLEASE DO NOT REMOVE THEM UNTIL YOU SEE YOUR PRIMARY CARE OR SPECIALTY. REFERRALS: Referrals: RIKI WYATT MD (PCP) Time of Disposition: 14:55 COOKIE EUGENE MD October 31, 2024 14:04
[2024-10-31 14:31] LABS: BASOPHILS # (AUTO) 0.03 K/uL (0.00-0.20); BASOPHILS % (AUTO) 0.5 % (0.0-5.0); EOSINOPHILS # (AUTO) 0.16 K/uL (0.00-0.70); EOSINOPHILS % (AUTO) 2.6 % (0.0-8.0); HEMATOCRIT 44.2 % (36-48); IMMATURE GRANULOCYTE ABSOLUTE 0.04 K/uL (0-1); LYMPHOCYTES # (AUTO) 1.7 K/uL (1.0-4.8); LYMPHOCYTES % (AUTO) 27.5 % (21.0-51.0); MEAN CORPUSCULAR HEMOGLOBIN 29.5 pg (27.0-33.0); MEAN CORPUSCULAR HGB CONC 31.9 g/dL (32.0-36.0); MEAN CORPUSCULAR VOLUME 92.5 fL (79-99); MONOCYTES # (AUTO) 0.6 K/uL (0.1-1.0); NEUTROPHILS # (AUTO) 3.6 K/uL (1.8-7.7); NEUTROPHILS % (AUTO) 58.7 % (40.0-77.0); PLATELET COUNT (AUTO) 218 K/uL (130-400); RED BLOOD CELL COUNT(AUTO) 4.78 MIL/uL (4.00-5.50); RED CELL DISTRIBUTION WIDTH 12.8 % (11.0-15.5); WHITE BLOOD COUNT (AUTO) 6.1 K/uL (4.8-10.8)
[2024-10-31 14:39] LABS: CREATININE 0.8 mg/dL (0.5-1.0); POTASSIUM 4.1 mmol/L (3.5-5.1)
--- NOTE | 2024-10-31 14:57 | HMCIMG ---
Exam Type: US SOFT TISSUE LOWER EXTREMITY Clinical Information: CALF ABSCESS/ CELLULITIS Comparison: October 30, 2024 Findings and impression: There is increasing abscess right calf posterior subcutaneous tissues area of concern has almost completely resolved with a residual small fluid pocket measuring 7 x 3 mm. No other interval changes.
[2024-10-31] MEDS: ketOROlac 30MG VIAL (30MG/ML) IM ONE (15:15)
[2024-10-31] MEDS: cefTRIAXone 1G VIAL IM ONE (15:15)
--- NOTE | 2024-10-31 15:39 | NUR ---
Performed standard wound care. Patient tolerated procedure well. Educated and teached patient and significant other about wound care, they verbalized and demostrated knowledge by teach back. Encouraged patient to make a follow up appoitment with PCP as soon as possible. Discussed signs and symptoms of cellulitis and infection. Patient and significant other verbalized understanding.
== END 2024-10-31 15:44 | disposition home or self-care (01) ==
LOC: EDH 12:29
DX: L03.115 Cellulitis of right lower limb (principal); E78.00 Pure hypercholesterolemia, unspecified; Z96.653 Presence of artificial knee joint, bilateral; Z79.899 Other long term (current) drug therapy
CPT/HCPCS: 99285; 80048; 85025; 36415; 76882; 96372 ×2; J1885; J0696